=== PATIENT | male | born 2000 | race Caucasian/White ===

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

== ENCOUNTER → 2023-10-16 17:01 | Outpatient (CLI) | payer OTHER, MEDICAID, SELFPAY ==
[2018-05-31 16:29] VITALS: BMI 17.1
[2023-10-16 17:22] LABS: Appearance Urine UA CLEAR; Bilirubin Urine UA NEGATIVE (NEGATIVE); Color Urine UA YELLOW; Glucose Urine UA NEGATIVE (Negative); Ketones Urine UA NEGATIVE (NEGATIVE); Leukocyte Esterase Urine UA NEGATIVE (NEGATIVE); Nitrite Urine UA NEGATIVE (Negative); Occult Blood Urine UA NEGATIVE (Negative); Protein Urine UA NEGATIVE (Negative); Specific Gravity Urine UA <=1.005 (1.000-1.035); Urobilinogen Urine UA 0.2 E.U./dL (0.2); pH Urine UA 5.5 (4.5-8.0)
[2023-10-16 17:32] LABS: Bacteria Urine None Seen; Culture Indicated Urine Cult Not Indicated; RBC Urine None Seen (0-5/HPF); Squamous Epithelial Cell Urine None Seen (0-5/HPF); Urine Volume 10mL (spun); WBC Urine None Seen (0-5/HPF)
== END ==
PROVIDERS: Family Medicine; Family Provider Family Medicine; PCP Family Medicine; Referring Provider Family Medicine; Visit Provider Family Medicine
DX: R39.9 Unspecified symptoms and signs involving the genitourinary system (principal)
CPT/HCPCS: 81001

== ENCOUNTER 2024-12-19 14:30 | Outpatient (RCR) | payer OTHER, SELFPAY ==
[2018-05-31 16:29] VITALS: BMI 17.1
--- NOTE | 2024-11-25 15:15 | PT.OPPOC ---
Physical, Occupational & Speech Therapy At 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) Visit Care Team Role Provider Type Issac Bass MD Primary Care Provider Physician Specialty: Family Practice Address: [address] [place] [address], [address], [address] Email: [email or web address] Vandana Osman PA-C Attending Provider Advanced Paper Bag Press Operator Referring Provider Specialty: Medical Address: [address] [place] [address], [place] [address], [place], [address] Email: [email or web address] Plan Of Care PT OP: Full Body Start: 11/25/24 17:46 Freq: Status: Active Protocol: Document 11/25/24 14:30 DCW (Rec: 11/25/24 17:58 DCW [id number]) Out-Patient Physical Therapy Visit Information Visit Information Visit Type Initial Evaluation Visit Start Time 14:30 Visit Stop Time 15:15 Visit Number 1 Number of RETINAL SURGEON Visits 0 Progress Note Due 12/25/24 Evaluation Information Evaluation Date 11/25/24 Current Condition History of Current Condition Onset Date Long-standing history Current Complaints Scoliosis, mid/low-back pain, worsening posture History of Current Pt is a 24 year old male presenting with a life-long Condition history of 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 Pt exhibits a right convexity cervical scoliosis secondary to the torticollis, however has been having more pain and worsening scoliosis in his thoracic spine with a compensatory left convexity thoracic scoliosis. Pt reports pain does not limit his activity, but he notices the back when he is doing things like lifting boxes at work. Admits he mainly uses his back, not his legs, to lift. OP-PT Subjective Patient Comments Patient Comments I notice it more when I'm lifting boxes at work. Patient Questionnaires Neck Disability Index NDI Score 0% Posture Evaluation Position Sitting Evaluation View Posterior Head/C-Spine Posture Side Bent Left T-Spine Posture Flexible Scoliosis on (L) Comments Posture Comments At height of inferior angle, left scapula is 7 cm from spine, right is 9 cm from spine Therapeutic Exercises Supine Exercises Horizontal Adduction Supine Exercise Name Horizontal Adduction Side bilateral Resistance 4# Serratus Punch Supine Exercise Name Serratus Punch Side bilateral Resistance 4# Prone Exercises Horizontal Abduction Prone Exercise Name Horizontal Abduction Side bilateral Resistance 4# Other Exercises Wall Push-up Other Exercise Name Wall Push-up Plus Physical Therapy Assessment Rehab Potential Rehabilitation Good Potential Evaluation Complexity Number of Personal 3 or More Factors/ Comorbidities Number of Body 4 or More Systems Impaired Clinical Unstable Presentation at Evaluation Impairments Impairments Activity Tolerance,Functional Activities,Functional Mobility,Posture,Soft Tissue Mobility,Strength,Tone Goals Two Impairment Flexible right thoracic scoliosis Long-Term Goal (LTG) Pt to present with distance of inferior angle of bilateral scapula to spine within one inch of each side LTG Duration 02/23/25 One Impairment Pt does not have an appropriate home exercise program Asphalt Plant Operator Goal (LTG) Pt to demonstrate ability to perform four home exercises without cueing in order to demonstrate independence with HEP LTG Duration 02/23/25 Assessment Summary Assessment Pt presents with signs and symptoms consistent with referring diagnosis. Pt exhibits thoracic scoliosis and bilateral shoulder weakness, possibly secondary to congenital torticollis. Increased difficulty with lifting/carrying, occasional thoracic and lumbar pain, and poor posture. Pt will likely benefit from skilled therapeutic intervention focusing on postural control, lifting/body mechanics, shoulder strengthening, thoracic/core strengthening, pain control, and functional mobility. Physical Therapy Plan Frequency and Duration Frequency of 2x/Week Treatment Plan of Care Start 11/25/24 Date Plan of Care End 02/23/25 Date Therapeutic Interventions Therapeutic Home Exercise Program,Joint Mobilizations,Manual Interventions Therapy,Neuromuscular Re-education,Patient/Caregiver Education,Self-Care/Home Management,Soft Tissue Mobilization,Taping,Therapeutic Activities,Therapeutic Exercises Modalities Cold Pack/Ice Massage,Electric Stimulation,Hot Packs, Ultrasound Next Visit Focus/Plan Next Note Type Treatment Note Next Visit Plan Shoulder mobility/strengthening, posture training, body mechanics Plan of Care Dates Plan of Care Start Date 11/25/24 Plan of Care End Date 02/23/25 Electronically Signed by: Sanket Nathan, PT 11/26/24 5225 If you are in agreement with this Plan of Care, please return a signed and dated copy. I have reviewed this Plan of Care and certify that the skilled therapy services above are required to meet the patient?s needs. Physician Signature Date Printed Name and Credentials Clinical Instructor Signature Printed Name and Credentials
--- NOTE | 2024-11-28 15:21 | PT.OTN ---
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 Gym Equipment Therapeutic Ball Walk-out Exercise Details Prone Walk-out /c push-up Ball Size/Color Red - 75 cm Rows Exercise Details Rows Ball Size/Color Red - 75 cm 3# weights Body Position Prone I's, Y's, T's Exercise Details Prone I's, Y's, T's Ball Size/Color Red - 75 cm 3# weights Body Position Prone Therapeutic Exercises Supine Exercises Horizontal Adduction Supine Exercise Name Horizontal Adduction Side bilateral Resistance Lv 4 T-band Serratus Punch Supine Exercise Name Serratus Punch Side bilateral Resistance Lv 4 T-band Other Exercises UE resisted ambulation Other Exercise Name UE Resisted side-stepping Resistance Green loop Reps/Minutes 10' x2 Comments Hands on wall Wall Clock Other Exercise Name UE Wall clock Side bilateral Resistance Green loop Therapeutic Activity Therapeutic Activity Body Mechanics Comments Lifting body mechanics - focus on lifting with legs, keeping load in to body, not twisting while carrying load Manual Therapy Treatment Consent Patient gave verbal Yes consent for manual treatment Soft Tissue Mobilization Scapular Musculature Body Location B Scapula Mobilization Type Strumming,Sustained Pressure,Trigger Point Release Intensity/Depth Moderate Body Position Sidelying Comments supra/infraspinatus, subscap, rhomboids Physical Therapy Assessment Impairments Impairments Activity Tolerance,Functional Activities,Functional Mobility,Posture,Soft Tissue Mobility,Strength,Tone Goals Two Impairment Flexible right thoracic scoliosis Physician Assistant Psychiatry Goal (LTG) Pt to present with distance of inferior angle of bilateral scapula to spine within one inch of each side LTG Duration 02/23/25 One Impairment Pt does not have an appropriate home exercise program Physician Assistant Psychiatry Goal (LTG) Pt to demonstrate ability to perform four home exercises without cueing in order to demonstrate independence with HEP LTG Duration 02/23/25 Assessment Summary Assessment Pt tolerated very well, was able to perform all exercises, although did note some difficulty/fatigue with strengthening in shoulders. Good response to body mechanics edu, pt noted understanding. Follow-up in 1-2 weeks with assessment of ongoing HEP and body mechanics. Physical Therapy Plan Frequency and Duration Frequency of 2x/Week Treatment Plan of Care Start 11/25/24 Date Plan of Care End 02/23/25 Date Therapeutic Interventions Therapeutic Home Exercise Program,Joint Mobilizations,Manual Interventions Therapy,Neuromuscular Re-education,Patient/Caregiver Education,Self-Care/Home Management,Soft Tissue Mobilization,Taping,Therapeutic Activities,Therapeutic Exercises Modalities Cold Pack/Ice Massage,Electric Stimulation,Hot Packs, Ultrasound Next Visit Focus/Plan Next Note Type Treatment Note Next Visit Plan Shoulder mobility/strengthening, posture training, body mechanics
--- NOTE | 2024-12-04 13:00 | PT.OTN ---
Current Diagnoses Dorsalgia, unspecified (12/04/24) Congenital deformity of sternocleidomastoid muscle (12/04/24) Physical Therapy Treatment Note PT OP: Full Body Start: 11/25/24 17:46 Freq: Status: Active Protocol: Document 12/04/24 12:15 DCW (Rec: 12/04/24 13:00 DCW [id number]) Out-Patient Physical Therapy Visit Information Visit Information Visit Type Treatment Note Visit Start Time 12:15 Visit Stop Time 13:00 Visit Number 3 Number of FLOOR TECH Visits 0 Progress Note Due 12/25/24 Evaluation Information Evaluation Date 11/25/24 OP-PT Subjective Patient Comments Patient Comments Pt notes that following his last visit, his right arm was a little more sore than his left, but I know I tend to use it more. Gym Equipment Cable Column (Body Solid) Lat Pull Down Resistance 50# Reps/Time 2x10 Therapeutic Ball Walk-out Exercise Details Prone Walk-out /c push-up Ball Size/Color Red - 75 cm Rows Exercise Details Rows Ball Size/Color Red - 75 cm 5# weights Body Position Prone I's, Y's, T's Exercise Details Prone I's, Y's, T's Ball Size/Color Red - 75 cm 5# weights Body Position Prone Therapeutic Exercises Other Exercises Body Blade Other Exercise Name Body Blade - Flexion, Abduction Side bilateral Resistance Large black UE resisted ambulation Other Exercise Name UE Resisted side-stepping Resistance Blue loop Reps/Minutes 10' x2 Comments Hands on wall Wall Push-up Other Exercise Name Wall Push-up Plus Physical Therapy Assessment Goals Two Impairment Flexible right thoracic scoliosis Prison Goal (LTG) Pt to present with distance of inferior angle of bilateral scapula to spine within one inch of each side LTG Duration 02/23/25 One Impairment Pt does not have an appropriate home exercise program Prison Goal (LTG) Pt to demonstrate ability to perform four home exercises without cueing in order to demonstrate independence with HEP LTG Duration 02/23/25 Assessment Summary Assessment Pt again tolerated very well, working hard on strengthening and stabilization of shoulders. Appears to be compliant with HEP, although still looking for a set of dumbbells to use at home. Continue working on posture, body mechanics, and strengthening. Physical Therapy Plan Frequency and Duration Frequency of 2x/Week Treatment Plan of Care Start 11/25/24 Date Plan of Care End 02/23/25 Date Therapeutic Interventions Therapeutic Home Exercise Program,Joint Mobilizations,Manual Interventions Therapy,Neuromuscular Re-education,Patient/Caregiver Education,Self-Care/Home Management,Soft Tissue Mobilization,Taping,Therapeutic Activities,Therapeutic Exercises Modalities Cold Pack/Ice Massage,Electric Stimulation,Hot Packs, Ultrasound Next Visit Focus/Plan Next Note Type Treatment Note Next Visit Plan Shoulder mobility/strengthening, posture training, body mechanics
--- NOTE | 2024-12-19 16:04 | PT.OPDS ---
Current Diagnoses Dorsalgia, unspecified (12/19/24) Congenital deformity of sternocleidomastoid muscle (12/19/24) Visit Care Team Role Provider Type Issac Bass MD Primary Care Provider Physician Specialty: Family Practice Address: [address] [place] [address], [address], [address] Email: [email or web address] Vandana Osman PA-C Attending Provider Advanced Experimental Mechanic Spacecraft Referring Provider Specialty: Medical Address: [address] [place] [address], [address], [facility] Email: [email or web address] Visit Number Visit Number 4 Discharge Summary PT OP: Full Body Start: 11/25/24 17:46 Freq: Status: Active Protocol: Document 12/19/24 14:35 DCW (Rec: 12/19/24 16:04 DCW [id number]) Out-Patient Physical Therapy Visit Information Visit Information Visit Type Discharge Summary Visit Start Time 14:35 Visit Stop Time 15:15 Visit Number 4 Number of INSTRUCTIONAL TECHNOLOGY FACILITATOR Visits 0 Progress Note Due 12/25/24 Evaluation Information Evaluation Date 11/25/24 OP-PT Subjective Patient Comments Patient Comments It's feeling alright, I'm taking more consideration when I'm picking things up. Does note that when playing pickleball, he over extended and felt a pull/ soreness in his left thoracic area, but notes there was no lingering pain the next day. Gym Equipment Cable Column (Body Solid) Lat Pull Down Resistance 60# -> 50# Reps/Time x10 at each weight Reverse Fly Details Reverse Fly Resistance 10# Therapeutic Ball Walk-out Exercise Details Prone Walk-out /c push-up Ball Size/Color Red - 75 cm Rows Exercise Details Rows Ball Size/Color Red - 75 cm 5# weights Body Position Prone I's, Y's, T's Exercise Details Prone I's, Y's, T's Ball Size/Color Red - 75 cm 5# weights Body Position Prone Therapeutic Exercises Other Exercises Wall angels Other Exercise Name Wall snow angels Side bilateral Resistance 3# Body Blade Other Exercise Name Body Blade - Flexion, Abduction Side bilateral Resistance Large black Comments Fatigues quicker on left Wall Clock Other Exercise Name UE Wall clock Side bilateral Resistance Green loop Physical Therapy Assessment Goals Two Impairment Flexible right thoracic scoliosis Jail Goal (LTG) Pt to present with distance of inferior angle of bilateral scapula to spine within one inch of each side LTG Duration 02/23/25 One Impairment Pt does not have an appropriate home exercise program Low Altitude Air Defense Gunner Goal (LTG) Pt to demonstrate ability to perform four home exercises without cueing in order to demonstrate independence with HEP LTG Duration 02/23/25 Assessment Summary Assessment Pt feeling pretty good overall with HEP and knowledge base, is returning to [place] for college next week, would like to discharge at this time, as he will be unable to make the trip here for treatment sessions until ~March. Physical Therapy Plan Frequency and Duration Frequency of 2x/Week Treatment Plan of Care Start 11/25/24 Date Plan of Care End 02/23/25 Date Therapeutic Interventions Therapeutic Home Exercise Program,Joint Mobilizations,Manual Interventions Therapy,Neuromuscular Re-education,Patient/Caregiver Education,Self-Care/Home Management,Soft Tissue Mobilization,Taping,Therapeutic Activities,Therapeutic Exercises Modalities Cold Pack/Ice Massage,Electric Stimulation,Hot Packs, Ultrasound Discharge Physical Therapy Discharge Comments PT d/c due to out of area for next three months. Next Visit Focus/Plan Next Note Type Discharge Summary
== END 2024-12-30 10:41 | disposition home or self-care (01) ==
LOC: PHYS 14:30
PROVIDERS: PCP Family Medicine; Referring Provider Physician Assistant; Visit Provider Physician Assistant
DX: M54.9 Dorsalgia, unspecified (principal); Q68.0 Congenital deformity of sternocleidomastoid muscle
CPT/HCPCS: 97110; 97140; 97162; 97530